=== PATIENT | male | born 1960 | race Caucasian/White ===

== ENCOUNTER 2016-10-17 09:00 | Day surgery (SDC) | payer BC ==
[~2016-10-17 09:00] MED LIST: Lactated Ringers 1,000 ML IV SCH; Propofol 200 MG/20 ML SDV ONE; Sodium Chloride 0.9% 10 ML Syringe FLUSH PRN
[2016-10-17] MEDS ORDERED: Lidocaine 2% 5 ML SDV ONE (10:04)
[2016-10-17] MEDS ORDERED: Propofol 200 MG/20 ML SDV ONE ×2 (10:04→10:25)
--- NOTE | 2016-10-17 10:07 | PCM.PN ---
- General Info Date of Service: 10/17/16 - Review of Systems Systems Review Comment:: 56 y/o male referred for EGD and colonoscopy. He has an approximately 5 month history of diarrhea which is unexplained. He has never had a previous colonoscopy. I have discussed the proposed upper and lower endoscopy with the patient. Indications and risks such as but not limited to bleeding and GI injury or reviewed. He appears to understand and agrees to proceed. He is medically stable to proceed today with no significant change in his health status since his recent history and physical which is reviewed. - Patient Data Vitals - most recent: Last Vital Signs Temp 97.7 F 10/17/16 09:11 Pulse 65 10/17/16 09:11 Resp 20 10/17/16 09:11 BP 131/77 10/17/16 09:11 Pulse Ox 97 10/17/16 09:11 Weight - most recent: 98.43 kg Med Orders - Current: Current Medications Lactated Ringer's (Ringers, Lactated) 1,000 mls @ 125 mls/hr IV ASDIRECTED CADENCE Last Admin: 10/17/16 09:47 Dose: 125 mls/hr Sodium Chloride (Saline Flush) 10 ml FLUSH ASDIRECTED PRN PRN Reason: Keep Vein Open Discontinued Medications Propofol (Diprivan 20 Ml) Confirm Administered Dose 400 mg .ROUTE .STK-MED ONE Stop: 10/17/16 08:09 - Problem List Review Problem List Initiated/Reviewed/Updated: Yes - Assessment Assessment:: Diarrhea Colon cancer screening - Plan Plan:: EGD and colonoscopy
--- NOTE | 2016-10-17 11:08 | PCM.OPNOTE ---
- General Post-Op/Procedure Note Date of Surgery/Procedure: 10/17/16 Operative Procedure(s): EGD with Bx and Colonoscopy with Polypectomy and Biopsy Findings: Moderate gastritis in the antrum Esophagitis at the GE junction Sigmoid colon polyp Scattered diverticuli of colon without acute inflammation Pre Op Diagnosis: Unexplained diarrhea Post-Op Diagnosis: Unexplained diarrhea. Gastritis. Esophagitis. Sigmoid colon polyp Anesthesia Technique: MAC Primary Surgeon: Jose Abraham Pathology: Biopsies of duodenum antrum and esophagus Sigmoid colon polyp Biopsies of left and right colon Output, Urine Amount: 0 EBL in mLs: 4 Complications: None Condition: Good Free Text/Narrative:: Intake & Output 10/16/16 10/17/16 10/17/16 22:59 06:59 14:59 Intake Total 500 Balance 500
--- NOTE | 2016-10-17 11:44 | OR ---
Date of Procedure: 10/17/2016 PREOPERATIVE DIAGNOSIS: Unexplained diarrhea. POSTOPERATIVE DIAGNOSES: 1. Unexplained diarrhea. 2. Gastritis. 3. Esophagitis. 4. Colon polyp. 5. Diverticulosis. OPERATION PERFORMED: EGD with biopsy, and colonoscopy with polypectomy and biopsy. INDICATIONS FOR SURGERY: This 56-year-old male was referred for EGD as well as his first colonoscopy. He has a several-month history of unexplained diarrhea. FINDINGS: In the patient's stomach, he has a moderate degree of inflammation with hyperemia and some friability of the antrum. There is no definite ulcer seen. The patient's duodenum appears normal. He has a moderate degree of inflammation at the GE junction, consistent with reflux esophagitis, but there is no stricturing, and the remainder of the esophagus appears normal. In the patient's colon, there is a 1.5 cm pedunculated polyp in the sigmoid colon, approximately 25 cm from the anal verge. The remainder of the colon mucosa appears normal except for some scattered diverticula noted without visible signs of acute inflammation. DESCRIPTION OF PROCEDURE: The patient was taken to the operating room. He was given intravenous sedation and his throat was topically anesthetized. The esophagus was intubated with the Olympus gastroscope and this was carefully advanced down through the esophagus, stomach, and duodenum, where examination to the fourth portion was performed. The duodenum appeared normal, but random biopsies of the duodenum were taken to evaluate for possible celiac disease in light of the patient's symptoms. The scope was withdrawn back up into the stomach where full examination, including retroflexed examination of the fundus was carried out. Biopsies were taken in the antrum in the region where inflammation was noted to rule out H. pylori. The GE junction was also examined and biopsies of this junction were taken. The esophagus was then re-examined as the scope was removed. Attention was turned to colonoscopy. Digital rectal exam was performed showing no rectal masses. The Olympus colonoscope was inserted into the rectum, retroflexed, examination of the rectal canal was performed. The scope was advanced to the sigmoid colon region where the above- described polyp was identified, it was removed with a cautery snare and retrieved. The scope was then advanced under direct visualization through the entire length of the colon until the cecum was reached. Cecal acquisition was confirmed by noting the normal internal cecal anatomy including the appendiceal orifice and ileocecal valve. The ileocecal valve could not be cannulated, but did appear normal without visible evidence of inflammation. The scope was then slowly withdrawn sequentially re-examining the colonic segments. During withdrawal of the scope, random biopsies of the right and left colon were taken because of the patient's history of diarrhea. After the colon had been examined, with no sign of any complicating process, the scope was removed and the patient was taken from the operating room in satisfactory condition. ESTIMATED BLOOD LOSS: 4 mL. COMPLICATIONS: None. PROGNOSIS: Good. FOREST Abraham MD /[id number] MTDD
[2016-10-17 15:24] VITALS: BP 121/98
== END 2016-10-17 12:09 | disposition home or self-care (01) ==
LOC: LL.SDS 09:00
PROVIDERS: ATTEND Surgery
DX: K29.50 Unspecified chronic gastritis without bleeding (principal); K31.9 Disease of stomach and duodenum, unspecified; K20.8 Other esophagitis; K29.00 Acute gastritis without bleeding; K52.832 Lymphocytic colitis; D12.5 Benign neoplasm of sigmoid colon; K57.30 Diverticulosis of large intestine without perforation or abscess without bleeding; E78.5 Hyperlipidemia, unspecified; I10 Essential (primary) hypertension; R53.83 Other fatigue; G47.30 Sleep apnea, unspecified; G47.10 Hypersomnia, unspecified; Z99.89 Dependence on other enabling machines and devices; E03.9 Hypothyroidism, unspecified; Z87.442 Personal history of urinary calculi; Z79.82 Long term (current) use of aspirin; Z79.899 Other long term (current) drug therapy; Z88.1 Allergy status to other antibiotic agents
CPT/HCPCS: 43239; 45380; 45385; J2704; J7120

== ENCOUNTER 2017-07-19 16:22 | Emergency (ER) | payer BC ==
[2017-07-19] MEDS ORDERED: Sodium Chloride 0.9% 10 ML Syringe FLUSH PRN (16:25)
[2017-07-19] MEDS ORDERED: HYDROmorphone 1 MG/ML Syringe IVPUSH PRN (16:26)
[2017-07-19] MEDS ORDERED: HYDROmorphone 1 MG/ML Syringe ONE (16:29)
[2017-07-19] MEDS ORDERED: Ondansetron 4 MG/2 ML SDV ONE (16:31)
[2017-07-19 16:45] LABS: CHLORIDE,CL 104 mmol/L (98-107); SODIUM,NA 141 mmol/L (136-145)
--- NOTE | 2017-07-19 16:51 | EDM.PDOC ---
ED HPI GENERAL MEDICAL PROBLEM - General Chief Complaint: General Stated Complaint: FALL Time Seen by Provider: 07/19/17 16:22 Source of Information: Reports: Patient, Family History Limitations: Reports: Other (Left chest pain left hip pain) - History of Present Illness INITIAL COMMENTS - FREE TEXT/NARRATIVE: Patient is a 57-year-old was brought in by private vehicle with chief complaint of severe chest pain patient states that he fell about 4 feet hitting a retainer wall with his chest complains of left posterior chest pain states about 10 out of 10 also complains of left hip pain this is tolerable at this time Onset: Sudden Duration: Minutes:, Getting Worse Location: Reports: Chest, Lower Extremity, Left Quality: Reports: Sharp Severity: Severe Improves with: Reports: None Worsens with: Reports: Movement Context: Reports: Trauma Associated Symptoms: Reports: Chest Pain - Related Data Allergies Allergy/AdvReac Type Severity Reaction Status Date / Time amoxicillin trihydrate Allergy Anaphylactic Verified 10/17/16 09:24 [From Augmentin] Shock latex Allergy Rash Verified 10/17/16 09:39 Penicillins Allergy Anaphylactic Verified 10/17/16 09:24 Shock potassium clavulanate Allergy Anaphylactic Verified 10/17/16 09:24 [From Augmentin] Shock Home Meds: Home Meds Fenofibrate,Micronized [Fenofibrate] 134 mg PO DAILY 09/29/14 [History] Levothyroxine 25 mcg PO DAILY 09/29/14 [History] Nebivolol [Bystolic] 5 mg PO DAILY 09/29/14 [History] Aspirin 325 mg PO DAILY 10/17/16 [History] Calcium Carbonate/Vitamin D3 [Calcium 600 + Vit D Tablet] 1 tab PO DAILY [History] Cider Vinegar [Apple Cider Vinegar] 1 tab PO BID 10/17/16 [History] Krill/Mylo-3/Dha/Epa/Lipids [Krill Oil 300 mg Softgel] 1 cap PO DAILY 10/17/16 [History] Melatonin 10 mg PO BEDTIME 10/17/16 [History] Multivitamin [Daily Multiple Vitamin] 1 tab PO DAILY 10/17/16 [History] Ubidecarenone [Co Q-10] 200 mg PO DAILY 10/17/16 [History] atorvaSTATin [Lipitor] 10 mg PO DAILY 10/17/16 [History] Acetaminophen/HYDROcodone [Pruden 325-5 MG] 1 tab PO Q6H 5 Days #20 tablet [Rx] Past Medical History - Past Health History Medical/Surgical History: Denies Medical/Surgical History HEENT History: Reports: Impaired Vision, Other (See Below) Other HEENT History: Has hx. of ringing in the ears Cardiovascular History: Reports: High Cholesterol, Hypertension Respiratory History: Reports: Sleep Apnea, Other (See Below) Gastrointestinal History: Reports: Other (See Below) Other Gastrointestinal History: Diarrhea for the past 3.5 months Genitourinary History: Reports: Other (See Below) Other Genitourinary History: Hx nephrolithiasis, prostatitis Musculoskeletal History: Reports: Fracture, Neck Pain, Chronic Neurological History: Reports: Other (See Below) Other Neuro History: Hypersomnolence Psychiatric History: Reports: None Endocrine/Metabolic History: Reports: Hypothyroidism Hematologic History: Reports: None Immunologic History: Reports: None. Denies: AIDS, HIV Oncologic (Cancer) History: Reports: None Dermatologic History: Reports: None - Infectious Disease History Infectious Disease History: Reports: Chicken Pox, Measles, Mumps, Rubella - Past Surgical History HEENT Surgical History: Reports: Oral Surgery Musculoskeletal Surgical History: Reports: Other (See Below) - Past Imaging History Past Imaging History: Reports: CAT Scan Social & Family History - Tobacco Use Smoking Status *Q: Never Smoker Used Tobacco, but Quit: No Second Hand Smoke Exposure: No - Caffeine Use Caffeine Use: Reports: Coffee, Tea - Alcohol Use Days Per Week of Alcohol Use: 0 (No previous DWI, etc. ) Number of Drinks Per Day: 2 (usually wine coolers once every 3 months) Total Drinks Per Week: 0 - Recreational Drug Use Recreational Drug Use: No Drug Use in Last 12 Months: No - Living Situation & Occupation Living situation: Reports: , with Family Occupation: Employed ED ROS GENERAL - Review of Systems Review Of Systems: See Below Constitutional: Reports: No Symptoms HEENT: Reports: No Symptoms Respiratory: Reports: Other (Pain with breathing) Cardiovascular: Reports: No Symptoms Endocrine: Reports: No Symptoms GI/Abdominal: Reports: No Symptoms : Reports: No Symptoms Musculoskeletal: Reports: Leg Pain Skin: Reports: No Symptoms Neurological: Reports: No Symptoms Psychiatric: Reports: No Symptoms Hematologic/Lymphatic: Reports: No Symptoms Immunologic: Reports: No Symptoms ED EXAM, GENERAL - Physical Exam Exam: See Below Exam Limited By: No Limitations General Appearance: Alert, WD/WN, Severe Distress Eye Exam: Bilateral Eye: EOMI, PERRL Ears: Normal External Exam, Normal Canal, Hearing Grossly Normal, Normal TMs Ear Exam: Bilateral Ear: Auricle Normal, Canal Normal, TM normal Nose: Normal Inspection, Normal Mucosa, No Blood Throat/Mouth: Normal Inspection, Normal Lips, Normal Teeth, Normal Gums, Normal Oropharynx, Normal Voice, No Airway Compromise Head: Atraumatic, Normocephalic Neck: Normal Inspection, Supple, Non-Tender, Full Range of Motion Respiratory/Chest: Lungs Clear, Decreased Breath Sounds Cardiovascular: Normal Peripheral Pulses, Regular Rate, Rhythm, No Edema, No Gallop, No JVD, No Murmur, No Rub GI/Abdominal: Normal Bowel Sounds, Soft, Non-Tender, No Organomegaly, No Distention, No Abnormal Bruit, No Mass (Male) Exam: No Hernia, Normal Inspection, Normal Prostate, Circumcised Rectal (Males) Exam: Deferred Back Exam: Normal Inspection, Paraspinal Tenderness Extremities: Arm Pain, Leg Pain (Patient has pain in right below knee tibia fibular area with hematoma. Left proximal femur hematoma patient has full range of motion in both legs will go ahead and do x-rays at this time patient is able to bear weight with minimal discomfort), Other (Left shoulder pain when flexing and extending arm prefers to have it at a right angle) Neurological: Alert, Oriented, CN II-XII Intact, Normal Cognition, Normal Gait, Normal Reflexes, No Motor/Sensory Deficits Psychiatric: Normal Affect, Normal Mood Course - Orders/Labs/Meds Orders: Active Orders 24 hr Category Date Time Status Chest wo Cont [CT] Stat Exams 07/19/17 16:23 Taken Femur Min 2V Lt [CR] Stat Exams 07/19/17 18:05 Ordered Tibia Fibula Rt [CR] Stat Exams 07/19/17 18:06 Ordered HYDROmorphone [Dilaudid] Med 07/19/17 16:26 Active 1 mg IVPUSH Q1H PRN Sodium Chloride 0.9% [Saline Flush] Med 07/19/17 16:25 Active 10 ml FLUSH ASDIRECTED PRN Saline Lock Insert [OM.PC] Stat Oth 07/19/17 16:25 Ordered Medication Orders Hydromorphone HCl (Dilaudid) 1 mg IVPUSH Q1H PRN PRN Reason: Pain Sodium Chloride (Saline Flush) 10 ml FLUSH ASDIRECTED PRN PRN Reason: Keep Vein Open Labs: Laboratory Tests 07/19/17 07/19/17 Range/Units 16:30 16:30 WBC 7.3 (4.0-10.2) K/uL RBC 4.88 (4.33-5.41) M/uL Hgb 15.4 (13.1-16.8) g/dL Hct 43.2 (39.0-49.0) % MCV 88.5 (84.0-98.0) fL MCH 31.6 (28.2-33.3) pg MCHC 35.6 (31.7-36.0) g/dL RDW 12.5 (11.2-14.1) % Plt Count 221 (150-350) K/uL Neut % (Auto) 51.9 (45.0-80.0) % Lymph % (Auto) 35.3 (10.0-50.0) % Gulf % (Auto) 8.3 (2.0-14.0) % Eos % (Auto) 3.9 (0.0-5.0) % Baso % (Auto) 0.6 (0.0-2.0) % Neut # (Auto) 3.77 (1.40-7.00) K/uL Lymph # (Auto) 2.56 (0.50-3.50) K/uL Gulf # (Auto) 0.60 (0.00-1.00) K/uL Eos # (Auto) 0.28 (0.00-0.50) K/uL Baso # (Auto) 0.04 (0.00-0.20) K/uL Sodium 141 (136-145) mmol/L Potassium 4.0 (3.5-5.1) mmol/L Chloride 104 (98-107) mmol/L Carbon Dioxide 28.2 (21.0-32.0) mmol/L BUN 29 H (7-18) mg/dL Creatinine 1.13 (0.51-1.17) mg/dL Est Cr Clr Drug Dosing TNP Estimated GFR (MDRD) > 60 mL/min Glucose 112 H (74-106) mg/dL Calcium 9.4 (8.5-10.1) mg/dL Meds: Medications Generic Name Dose Route Start Last Admin Trade Name Keenan PRN Reason Stop Dose Admin Hydromorphone HCl 1 mg 07/19/17 16:26 Dilaudid IVPUSH Q1H PRN Pain Sodium Chloride 10 ml 07/19/17 16:25 Saline Flush FLUSH ASDIRECTED PRN Keep Vein Open Discontinued Medications Generic Name Dose Route Start Last Admin Trade Name Keenan PRN Reason Stop Dose Admin Hydromorphone HCl Confirm 07/19/17 16:29 Dilaudid Administered 07/19/17 16:30 Dose 1 mg .ROUTE .STK-MED ONE Hydromorphone HCl 1 mg 07/19/17 16:56 Dilaudid IVPUSH 07/19/17 16:57 ONETIME ONE Ondansetron HCl Confirm 07/19/17 16:31 Zofran Administered 07/19/17 16:32 Dose 4 mg .ROUTE .STK-MED ONE Departure - Departure Time of Disposition: 18:49 Disposition: Home, Self-Care 01 Condition: Good Clinical Impression: Left rib fracture Qualifiers: Encounter type: initial encounter Rib fracture type: multiple ribs Fracture type: closed Qualified Code(s): S22.42XA - Multiple fractures of ribs, left side , initial encounter for closed fracture - Discharge Information Prescriptions: Acetaminophen/HYDROcodone [Pruden 325-5 MG] 1 tab PO Q6H 5 Days #20 tablet Forms: ED Department Discharge Care Plan Goals: Patient will be sent home with family he is to take Narco 1 tablet every 6 hours for pain follow-up with primary as needed - My Orders Last 24 Hours: My Active Orders 07/19/17 16:23 Chest wo Cont [CT] Stat 07/19/17 16:25 Sodium Chloride 0.9% [Saline Flush] 10 ml FLUSH ASDIRECTED PRN Saline Lock Insert [OM.PC] Stat 07/19/17 16:26 HYDROmorphone [Dilaudid] 1 mg IVPUSH Q1H PRN 07/19/17 18:05 Femur Min 2V Lt [CR] Stat 07/19/17 18:06 Tibia Fibula Rt [CR] Stat - Assessment/Plan Last 24 Hours: My Active Orders 07/19/17 16:23 Chest wo Cont [CT] Stat 07/19/17 16:25 Sodium Chloride 0.9% [Saline Flush] 10 ml FLUSH ASDIRECTED PRN Saline Lock Insert [OM.PC] Stat 07/19/17 16:26 HYDROmorphone [Dilaudid] 1 mg IVPUSH Q1H PRN 07/19/17 18:05 Femur Min 2V Lt [CR] Stat 07/19/17 18:06 Tibia Fibula Rt [CR] Stat
[2017-07-19] MEDS ORDERED: HYDROmorphone 1 MG/ML Syringe IVPUSH ONE (16:56)
== END 2017-07-19 19:15 | disposition home or self-care (01) ==
LOC: LL.ED 16:22
DX: S22.42XA Multiple fractures of ribs, left side, initial encounter for closed fracture (principal); E78.00 Pure hypercholesterolemia, unspecified; I10 Essential (primary) hypertension; E03.9 Hypothyroidism, unspecified; Z88.1 Allergy status to other antibiotic agents; Z91.040 Latex allergy status; Z88.0 Allergy status to penicillin; Z88.8 Allergy status to other drugs, medicaments and biological substances; Z79.82 Long term (current) use of aspirin; Z79.899 Other long term (current) drug therapy; W17.89XA Other fall from one level to another, initial encounter
CPT/HCPCS: 36415; 71250; 73590-RT; 80048; 85025; 96374; 96375; 99285; J1170; J2405

== ENCOUNTER 2017-07-26 10:50 | Emergency (ER) | payer BC ==
[2017-07-26 11:44] LABS: CHLORIDE,CL 101 mmol/L (98-107); SODIUM,NA 136 mmol/L (136-145)
--- NOTE | 2017-07-26 11:57 | EDM.PDOC ---
ED HPI GENERAL MEDICAL PROBLEM - General Chief Complaint: General Stated Complaint: right leg redness, edema Time Seen by Provider: 07/26/17 11:29 Source of Information: Reports: Patient, Family History Limitations: Reports: No Limitations - History of Present Illness INITIAL COMMENTS - FREE TEXT/NARRATIVE: Patient presents with right lower leg pain. Increased pain noticed over the last several days. Anterior jarquin is most painful part. Has abrasions in this area from recent fall that he was seen for here in this ER on Jul 19, one week ago. Today leg is reddened and is more swollen compared to left leg. Denies fevers/ chills. Did have some drainage on a bandage over the abrasions earlier. Difficult to ambulate due to discomfort. Slipped on ice and fell over 3 foot retaining wall last week. Diagnosed with minor fractures of left 7th and 8th ribs, left hip and chest contusion, in addition to the abrasions on lower anterior right leg. Pain associated with rib fractures and chest contusion have been improving. Left hip is very bruised but slowly improving. No other changes reported. Right Lower Leg Pain Score (Numeric/FACES): 3 - Related Data Allergies Allergy/AdvReac Type Severity Reaction Status Date / Time amoxicillin trihydrate Allergy Anaphylactic Verified 07/26/17 11:03 [From Augmentin] Shock latex Allergy Rash Verified 07/26/17 11:03 Penicillins Allergy Anaphylactic Verified 07/26/17 11:03 Shock potassium clavulanate Allergy Anaphylactic Verified 07/26/17 11:03 [From Augmentin] Shock Home Meds: Home Meds Levothyroxine 25 mcg PO DAILY 09/29/14 [History] Nebivolol [Bystolic] 5 mg PO DAILY 09/29/14 [History] Cider Vinegar [Apple Cider Vinegar] 1 tab PO BID 10/17/16 [History] Krill/[place]-3/Dha/Epa/Lipids [Krill Oil 300 mg Softgel] 1 cap PO DAILY 10/17/16 [History] Melatonin 10 mg PO BEDTIME 10/17/16 [History] Multivitamin [Daily Multiple Vitamin] 1 tab PO DAILY 10/17/16 [History] Ubidecarenone [Co Q-10] 200 mg PO DAILY 10/17/16 [History] Acetaminophen/HYDROcodone [[place] 325-5 MG] 1 tab PO Q4H PRN 07/26/17 [History] Cholestyramine/Sucrose [Cholestyramine Packet] 4 gm PO BID 07/26/17 [History] Non-Formulary Medication [NF Drug] 1 tab PO DAILY 07/26/17 [History] Simvastatin [Zocor] 10 mg PO BEDTIME 07/26/17 [History] Past Medical History - Past Health History Medical/Surgical History: Denies Medical/Surgical History HEENT History: Reports: Impaired Vision, Other (See Below) Other HEENT History: Has hx. of ringing in the ears Cardiovascular History: Reports: High Cholesterol, Hypertension Respiratory History: Reports: Sleep Apnea Gastrointestinal History: Reports: Other (See Below) Other Gastrointestinal History: Lymphatic Collitis Genitourinary History: Reports: Renal Calculus, Other (See Below) Other Genitourinary History: Hx nephrolithiasis, prostatitis Musculoskeletal History: Reports: Fracture, Neck Pain, Chronic Neurological History: Reports: Other (See Below) Other Neuro History: Hypersomnolence Psychiatric History: Reports: None Endocrine/Metabolic History: Reports: Hypothyroidism Hematologic History: Reports: None Immunologic History: Reports: None Oncologic (Cancer) History: Reports: None Dermatologic History: Reports: None - Infectious Disease History Infectious Disease History: Reports: Chicken Pox, Measles, Mumps, Rubella - Past Surgical History Head Surgeries/Procedures: Reports: None HEENT Surgical History: Reports: Oral Surgery - Past Imaging History Past Imaging History: Reports: CAT Scan Social & Family History - Family History Neurological: Reports: Alzheimers Disease, Other (See Below) Other Neurological Family History: mother Alzheimers by her 50s Endocrine/Metabolic: Reports: Hypothyroidism Oncologic: Reports: Colon, Other (See Below) Other Oncologic Family History: colon cancer father - Tobacco Use Smoking Status *Q: Never Smoker Used Tobacco, but Quit: No Second Hand Smoke Exposure: No - Caffeine Use Caffeine Use: Reports: Coffee, Tea - Alcohol Use Days Per Week of Alcohol Use: 0 (No previous DWI, etc. ) Number of Drinks Per Day: 2 (usually wine coolers once every 3 months) Total Drinks Per Week: 0 Alcohol Use Comment: Very rarely uses alcohol. - Recreational Drug Use Recreational Drug Use: No Drug Use in Last 12 Months: No - Living Situation & Occupation Living situation: Reports: , with Family Occupation: Employed ED ROS GENERAL - Review of Systems Review Of Systems: See Below Constitutional: Reports: Malaise, Fatigue, Decreased Appetite. Denies: Fever, Chills, Weakness, Night Sweats, Diaphoresis, Weight Gain HEENT: Reports: No Symptoms Respiratory: Reports: No Symptoms. Denies: Shortness of Breath Cardiovascular: Reports: Other (discomfort left lateral chest from contusion and rib fractures. Improving). Denies: Dyspnea on Exertion GI/Abdominal: Reports: No Symptoms (No acute changes) : Reports: No Symptoms Musculoskeletal: Reports: Leg Pain. Denies: Foot Pain Skin: Reports: Erythema, Wound (see HPI) Neurological: Reports: No Symptoms. Denies: Headache, Numbness, Paresthesia, Syncope, Tremors, Change in Speech Psychiatric: Reports: No Symptoms Hematologic/Lymphatic: Reports: No Symptoms Free Text/Narrative/Comment: Patient is taking Hydrocodone. Says that he feels "funny" from the medication as he has been taking it every 4-6 hours. ED EXAM, GENERAL - Physical Exam Exam: See Below Exam Limited By: No Limitations General Appearance: Alert, WD/WN, Mild Distress Eye Exam: Bilateral Eye: EOMI, PERRL Ears: Normal External Exam, Normal Canal Nose: Normal Inspection Throat/Mouth: Normal Inspection, Normal Lips, Normal Teeth, Normal Gums, Normal Oropharynx, Normal Voice, No Airway Compromise Head: Atraumatic, Normocephalic Neck: Normal Inspection, Supple, Non-Tender, Full Range of Motion. No: Lymphadenopathy (L), Lymphadenopathy (R) Respiratory/Chest: No Respiratory Distress, Lungs Clear, Normal Breath Sounds, No Accessory Muscle Use, Other (left lateral chest tenderness noted. No crepitus. ) Cardiovascular: Normal Peripheral Pulses, Regular Rate, Rhythm, No Murmur Peripheral Pulses: 2+: Radial (L), Radial (R), Dorsalis Pedis (L), Dorsalis Pedis (R) GI/Abdominal: Normal Bowel Sounds, Soft, Non-Tender, No Distention (Male) Exam: Deferred Rectal (Males) Exam: Deferred Back Exam: No: CVA Tenderness (L), CVA Tenderness (R) Extremities: Pedal Edema (mild, on right), Oswaldo's Sign (mild, on right), Leg Pain (right), Increased Warmth, Redness (right lower leg/anterior jarquin). No: Joint Swelling Neurological: Alert, Oriented, CN II-XII Intact, No Motor/Sensory Deficits Psychiatric: Normal Affect, Normal Mood Skin Exam: Warm, Dry, Intact, Ecchymosis (older bruising from fall noted left hip/side), Other (See above for right lower leg) Course - Vital Signs Last Recorded V/S: Last Vital Signs Temp 37.1 C 07/26/17 11:20 Pulse 65 07/26/17 13:43 Resp 16 07/26/17 13:43 BP 117/69 07/26/17 13:43 Pulse Ox 93 L 07/26/17 13:43 - Orders/Labs/Meds Orders: Active Orders 24 hr Category Date Time Status Peripheral IV Care [RC] . DIRECTED Care 07/26/17 11:23 Active CULTURE WOUND [RM] Stat Lab 07/26/17 11:23 Ordered Sodium Chloride 0.9% [Saline Flush] Med 07/26/17 11:23 Active 10 ml FLUSH ASDIRECTED PRN Peripheral IV Insertion Adult [OM.PC] Routine Oth 07/26/17 11:23 Ordered Medication Orders Sodium Chloride (Saline Flush) 10 ml FLUSH ASDIRECTED PRN PRN Reason: Keep Vein Open Last Admin: 07/26/17 12:55 Dose: 10 ml Admin: 07/26/17 12:20 Dose: 10 ml Labs: Laboratory Tests 07/26/17 07/26/17 07/26/17 Range/Units 11:15 11:15 11:15 WBC 6.7 (4.0-10.2) K/uL RBC 4.70 (4.33-5.41) M/uL Hgb 14.7 (13.1-16.8) g/dL Hct 42.1 (39.0-49.0) % MCV 89.6 (84.0-98.0) fL MCH 31.3 (28.2-33.3) pg MCHC 34.9 (31.7-36.0) g/dL RDW 12.5 (11.2-14.1) % Plt Count 191 (150-350) K/uL Neut % (Auto) 62.4 (45.0-80.0) % Lymph % (Auto) 20.4 (10.0-50.0) % [place] % (Auto) 11.7 (2.0-14.0) % Eos % (Auto) 5.1 H (0.0-5.0) % Baso % (Auto) 0.4 (0.0-2.0) % Neut # (Auto) 4.17 (1.40-7.00) K/uL Lymph # (Auto) 1.36 (0.50-3.50) K/uL [place] # (Auto) 0.78 (0.00-1.00) K/uL Eos # (Auto) 0.34 (0.00-0.50) K/uL Baso # (Auto) 0.03 (0.00-0.20) K/uL D-Dimer, Quantitative 767 H (0-400) ng/mL Sodium 136 (136-145) mmol/L Potassium 4.1 (3.5-5.1) mmol/L Chloride 101 (98-107) mmol/L Carbon Dioxide 27.6 (21.0-32.0) mmol/L BUN 18 (7-18) mg/dL Creatinine 1.01 (0.51-1.17) mg/dL Est Cr Clr Drug Dosing 86.44 mL/min Estimated GFR (MDRD) > 60 mL/min Glucose 103 (74-106) mg/dL Calcium 9.2 (8.5-10.1) mg/dL Total Bilirubin 0.7 (0.2-1.0) mg/dL AST 28 (15-37) U/L ALT 48 (12-78) U/L Alkaline Phosphatase 59 (46-116) IU/L Total Protein 7.5 (6.4-8.2) g/dL Albumin 3.8 (3.4-5.0) g/dL Meds: Medications Generic Name Dose Route Start Last Admin Trade Name Freq PRN Reason Stop Dose Admin Sodium Chloride 10 ml 07/26/17 11:23 07/26/17 12:55 Saline Flush FLUSH 10 ml ASDIRECTED PRN Administration Keep Vein Open Discontinued Medications Generic Name Dose Route Start Last Admin Trade Name Freq PRN Reason Stop Dose Admin Diphenhydramine HCl 50 mg 07/26/17 12:42 07/26/17 12:52 Benadryl IVPUSH 07/26/17 12:43 50 mg ONETIME ONE Administration Clindamycin Phosphate 600 mg/ 104 mls @ 200 mls/hr 07/26/17 12:07 07/26/17 12 :55 Sodium Chloride IV 07/26/17 12:38 200 mls/hr ONETIME ONE Administration Morphine Sulfate 5 mg 07/26/17 12:01 07/26/17 12:20 Morphine IVPUSH 07/26/17 12:02 5 mg ONETIME ONE Administration Neomycin/Polymyxin/Bacitracin 1 each 07/26/17 12:02 07/26/17 12:19 Triple Antibiotic Oint TOP 07/26/17 12:03 1 each ONETIME ONE Administration Ondansetron HCl 4 mg 07/26/17 12:02 07/26/17 12:19 Zofran IVPUSH 07/26/17 12:03 4 mg ONETIME ONE Administration - Re-Assessments/Exams Free Text/Narrative Re-Assessment/Exam: 07/26/17 12:18 Normal CBC/WBC and Chem DDimer elevated to 767 Afebrile. VSS. Given recent mobility limitations s/p fall, elevated DDimer, and right lower leg pain (including calf area) it was felt prudent to rule out DVT by US study. As it is not available over the weekend for our facility, arrangements were made for the patient to go to [facility] and present to the ER to be seen by . will take over care and arrange for US study. Patient will require inpatient treatment for the infection as well as pain management. [facility] does have room for him if he wishes admission to their facility. However he was made aware that if he desires he can return to our facility for admission and treatment after US is performed and results available. Patient and his said that they will see how he feels once he is up at [facility] for the US and they will then decide. IV Clindamycin as well as Zofran and MS given in ER prior to transfer. Flag in system generated when Clinda ordered due to patient's allergy to latex. Per Pharmacy there can be latex contamination in some Clindamycin introduced during manufacturing process. After discussing what latex allergy is with patient, he mentioned that it was a band aid issue where he gets red under band aids. He showed us an area on his arm where he used a latex-free band aid and he still got red. Suspect patient is sensitive to adhesive and not latex after conversation. No history of anaphylaxis with "latex/bandaids/adhesive". Clindamycin given without any problems/reaction noted. Departure - Departure Time of Disposition: 13:00 Disposition: DC/Tfer to Acute Hospital 02 Condition: Fair Clinical Impression: Cellulitis of right leg, D-dimer, elevated - Discharge Information Referrals: Tanya Castaneda MD [Primary Care Provider] - Forms: ED Department Discharge Additional Instructions: Drive directly to [facility] in [place] and present to the ER. is expecting you. He will see you and arrange for US study of lower leg. Once it has been determined if there is/is not a blood clot involved then it is anticipated that you would benefit from inpatient treatment for cellulitis and pain management. You can decide if you wish to stay at [facility] for this. You can also return back to [place] and be admitted for treatment here. - My Orders Last 24 Hours: My Active Orders 07/26/17 11:23 Peripheral IV Care [RC] . DIRECTED CULTURE WOUND [RM] Stat Sodium Chloride 0.9% [Saline Flush] 10 ml FLUSH ASDIRECTED PRN Peripheral IV Insertion Adult [OM.PC] Routine - Assessment/Plan Last 24 Hours: My Active Orders 07/26/17 11:23 Peripheral IV Care [RC] . DIRECTED CULTURE WOUND [RM] Stat Sodium Chloride 0.9% [Saline Flush] 10 ml FLUSH ASDIRECTED PRN Peripheral IV Insertion Adult [OM.PC] Routine
[2017-07-26] MEDS ORDERED: Morphine 10 MG/ML Syringe IVPUSH ONE (12:01)
[2017-07-26] MEDS ORDERED: Ondansetron 4 MG/2 ML SDV IVPUSH ONE (12:02)
[2017-07-26] MEDS ORDERED: Bacitracin/Neomycin/Polymyxin B Oint 0.9 GM U/D Packet TOP ONE (12:02)
[2017-07-26] MEDS ORDERED: Clindamycin Phosphate 600 MG in Sodium Chloride 0.9% 100 ML IV ONE (12:07)
[2017-07-26] MEDS: Sodium Chloride 0.9% 10 ML Syringe FLUSH PRN ×2 (12:20→12:55)
[2017-07-26] MEDS ORDERED: diphenhydrAMINE 50 MG/ML SDV IVPUSH ONE (12:42)
[2017-07-26 13:44] VITALS: BP 117/69
== END 2017-07-26 13:55 ==
LOC: LL.ED 10:50
DX: L03.115 Cellulitis of right lower limb (principal); R79.1 Abnormal coagulation profile; I10 Essential (primary) hypertension; E78.00 Pure hypercholesterolemia, unspecified; E03.9 Hypothyroidism, unspecified; Z88.0 Allergy status to penicillin; Z88.1 Allergy status to other antibiotic agents; Z91.040 Latex allergy status; Z79.899 Other long term (current) drug therapy
CPT/HCPCS: 36415; 80053; 85025; 85379; 96365; 96375; 99284; J1200; J2270; J2405; J7050; S0077

== ENCOUNTER 2017-07-26 20:48 | Inpatient (IN) | payer BC ==
--- NOTE | 2017-07-26 21:19 | PCM.HP ---
H&P History of Present Illness - General Date of Service: 07/26/17 Admit Problem/Dx: Cellulitis right leg Source of Information: Patient History Limitations: Reports: No Limitations - History of Present Illness Initial Comments - Free Text/Narative: Patient seen in ER earlier for new onset right leg swelling and redness. Diagnosed with cellulitis and given IV antibiotics. However prior to admission needed US to formally rule out DVT involvement due to calf pain and elevated DDimer. Patient sent to [facility] for US study. This was negative for DVT. He now returns to continue treatment at our facility. Please refer to ER note/H&P and use for admission H&P. - Related Data Allergies/Adverse Reactions: Allergies Allergy/AdvReac Type Severity Reaction Status Date / Time amoxicillin trihydrate Allergy Anaphylactic Verified 07/26/17 11:03 [From Augmentin] Shock latex Allergy Rash Verified 07/26/17 11:03 Penicillins Allergy Anaphylactic Verified 07/26/17 11:03 Shock potassium clavulanate Allergy Anaphylactic Verified 07/26/17 11:03 [From Augmentin] Shock Home Medications: Home Meds Levothyroxine 25 mcg PO DAILY 09/29/14 [History] Nebivolol [Bystolic] 5 mg PO DAILY 09/29/14 [History] Cider Vinegar [Apple Cider Vinegar] 1 tab PO BID 10/17/16 [History] Krill/[place]-3/Dha/Epa/Lipids [Krill Oil 300 mg Softgel] 1 cap PO DAILY 10/17/16 [History] Melatonin 10 mg PO BEDTIME 10/17/16 [History] Multivitamin [Daily Multiple Vitamin] 1 tab PO DAILY 10/17/16 [History] Ubidecarenone [Co Q-10] 200 mg PO DAILY 10/17/16 [History] Acetaminophen/HYDROcodone [[place] 325-5 MG] 1 tab PO Q4H PRN 07/26/17 [History] Cholestyramine/Sucrose [Cholestyramine Packet] 4 gm PO BID 07/26/17 [History] Non-Formulary Medication [NF Drug] 1 tab PO DAILY 07/26/17 [History] Simvastatin [Zocor] 10 mg PO BEDTIME 07/26/17 [History] Past Medical History - Past Health History Medical/Surgical History: Denies Medical/Surgical History HEENT History: Reports: Impaired Vision, Other (See Below) Other HEENT History: Has hx. of ringing in the ears Cardiovascular History: Reports: High Cholesterol, Hypertension Respiratory History: Reports: Sleep Apnea Gastrointestinal History: Reports: Other (See Below) Other Gastrointestinal History: Lymphatic Collitis Genitourinary History: Reports: Renal Calculus, Other (See Below) Other Genitourinary History: Hx nephrolithiasis, prostatitis Musculoskeletal History: Reports: Fracture, Neck Pain, Chronic Neurological History: Reports: Other (See Below) Other Neuro History: Hypersomnolence Psychiatric History: Reports: None Endocrine/Metabolic History: Reports: Hypothyroidism Hematologic History: Reports: None Immunologic History: Reports: None Oncologic (Cancer) History: Reports: None Dermatologic History: Reports: None - Infectious Disease History Infectious Disease History: Reports: Chicken Pox, Measles, Mumps, Rubella - Past Surgical History Head Surgeries/Procedures: Reports: None HEENT Surgical History: Reports: Oral Surgery - Past Imaging History Past Imaging History: Reports: CAT Scan Social & Family History - Family History Neurological: Reports: Alzheimers Disease, Other (See Below) Other Neurological Family History: mother Alzheimers by her 50s Endocrine/Metabolic: Reports: Hypothyroidism Oncologic: Reports: Colon, Other (See Below) Other Oncologic Family History: colon cancer father - Tobacco Use Smoking Status *Q: Never Smoker Used Tobacco, but Quit: No Second Hand Smoke Exposure: No - Caffeine Use Caffeine Use: Reports: Coffee, Tea Caffeine Use Comment: occassional coffee and tea - Alcohol Use Days Per Week of Alcohol Use: 0 (No previous DWI, etc. ) Number of Drinks Per Day: 2 (usually wine coolers once every 3 months) Total Drinks Per Week: 0 - Recreational Drug Use Recreational Drug Use: No Drug Use in Last 12 Months: No - Living Situation & Occupation Living situation: Reports: , with Family Occupation: Employed H&P Review of Systems - Review of Systems: Review Of Systems: See Below Free Text/Narrative: See ER note Exam - Exam Exam: See Below (See ER note for H&P) *Q Meaningful Use (ADM) - VTE *Q VTE Criteria *Q: - Stroke *Q Stroke Criteria *Q: - AMI *Q AMI Criteria *Q: - Problem List (1) Cellulitis of right leg SNOMED Code(s): 352982068 ICD Code: L03.115 - CELLULITIS OF RIGHT LOWER LIMB Status: Acute Priority : High Current Visit: No Onset Date: ~07/25/17 Problem Details: Recent fall with subsequent leg abrasion one week ago. Developed increased pain, redness and swelling over last 48 hours around abrasion and lower leg. No active drainage. Unable to obtain culture in ER. (2) Hyperlipidemia SNOMED Code(s): 86073842 ICD Code: E78.5 - HYPERLIPIDEMIA, UNSPECIFIED Status: Chronic Priority: Low Current Visit: No Problem Details: Stable per history from patient and (3) Hypertension SNOMED Code(s): 48347040 ICD Code: I10 - ESSENTIAL (PRIMARY) HYPERTENSION Status: Chronic Priority : Low Current Visit: No Problem Details: Stable per history (4) Hypothyroid SNOMED Code(s): 75886152 ICD Code: E03.9 - HYPOTHYROIDISM, UNSPECIFIED Status: Chronic Priority: Low Current Visit: No Qualifiers: Hypothyroidism type: unspecified Qualified Code(s): E03.9 - Hypothyroidism , unspecified Problem List Initiated/Reviewed/Updated: Yes Assessment/Plan Comment:: Cellulitis right lower leg. Recent fall one week ago with subsequent lower right leg abrasions as well as left rib fractures and left sided contusions. Initial workup in ER. No DVT per [facility] ultrasound study in [place]. Will continue Clindamycin IV as well as focus on pain management. Anticipate 3 day stay for antibiotic therapy, improvement of infection and pain, and transitioning to oral medication prior to discharge home.
[2017-07-26] MEDS ORDERED: Bisacodyl 5 MG Tab PO PRN (21:25)
[2017-07-26] MEDS ORDERED: Acetaminophen 325 MG Tab PO PRN (21:25)
[2017-07-26] MEDS ORDERED: Ondansetron 4 MG/2 ML SDV IVPUSH PRN (21:25)
[2017-07-26] MEDS ORDERED: Morphine 10 MG/ML Syringe IVPUSH ONE (21:35)
[2017-07-26] MEDS: Enoxaparin 40 MG/0.4 ML Syringe SUBCUT SCH (22:18)
[2017-07-26] MEDS: Clindamycin Phosphate 600 MG in Sodium Chloride 0.9% 100 ML IV SCH (22:19)
[2017-07-27] MEDS: Sodium Chloride 0.9% 10 ML Syringe FLUSH PRN ×5 (02:44→21:58)
[2017-07-27] MEDS ORDERED: Morphine 10 MG/ML Syringe IVPUSH ONE (03:00)
[2017-07-27] MEDS: Ketorolac 30 MG/ML SDV IVPUSH PRN ×2 (05:19→19:03)
[2017-07-27] MEDS: Clindamycin Phosphate 600 MG in Sodium Chloride 0.9% 100 ML IV SCH ×3 (05:19→21:57)
[2017-07-27] MEDS: Enoxaparin 40 MG/0.4 ML Syringe SUBCUT SCH (07:47)
[2017-07-27] MEDS: Levothyroxine 25 MCG Tab PO SCH (07:47)
--- NOTE | 2017-07-27 12:44 | PCM.PN ---
- General Info Date of Service: 07/27/17 Admission Dx/Problem (Free Text): Cellulitis right leg Subjective Update: Pain still present but improves with pain medication. No worsening overall. Feels more rested today. No fevers/chills. Leg is sometimes itchy today. Functional Status: Reports: Pain Controlled Pain Score: 5 - Review of Systems General: Reports: Fatigue, Appetite (still decreased). Denies: Fever, Night Sweats HEENT: Reports: No Symptoms Pulmonary: Reports: No Symptoms Cardiovascular: Reports: No Symptoms Gastrointestinal: Reports: No Symptoms Genitourinary: Reports: No Symptoms Musculoskeletal: Reports: Leg Pain Skin: Reports: Other (cellulitis of leg) Neurological: Reports: No Symptoms Psychiatric: Reports: No Symptoms - Patient Data Vitals - Most Recent: Last Vital Signs Temp 36.7 C 07/27/17 07:48 Pulse 69 07/27/17 07:48 Resp 20 07/27/17 07:48 BP 115/75 07/27/17 07:48 Pulse Ox 93 L 07/27/17 07:48 Weight - Most Recent: 102.512 kg I&O - Last 24 Hours: Intake & Output 07/26/17 07/27/17 07/27/17 22:59 06:59 14:59 Intake Total 250 300 Output Total 500 Balance -250 300 Med Orders - Current: Current Medications Acetaminophen (Tylenol) 650 mg PO Q4H PRN PRN Reason: Pain (Mild 1-3)/fever Bisacodyl (Dulcolax) 5 mg PO DAILY PRN PRN Reason: Constipation Coenzyme Q10 (Coenzyme Q10) 200 mg PO DAILY [facility] Last Admin: 07/27/17 07:47 Dose: 200 mg Enoxaparin Sodium (Lovenox) 40 mg SUBCUT DAILY [facility] Last Admin: 07/27/17 07:47 Dose: 40 mg Fenofibrate (Fenofibrate) 134 mg PO BEDTIME [facility] Clindamycin Phosphate 600 mg/ (Sodium Chloride) 104 mls @ 200 mls/hr IV Q8H [facility] Last Admin: 07/27/17 05:19 Dose: 200 mls/hr Ketorolac Tromethamine (Toradol) 30 mg IVPUSH Q6H PRN PRN Reason: Pain (moderate 4-6) Last Admin: 07/27/17 05:19 Dose: 30 mg Levothyroxine Sodium (Levothyroxine) 25 mcg PO DAILY [facility] Last Admin: 07/27/17 07:47 Dose: 25 mcg Nebivolol (Bystolic) 5 mg PO DAILY [facility] Last Admin: 07/27/17 07:46 Dose: 5 mg Ondansetron HCl (Zofran) 4 mg IVPUSH Q6H PRN PRN Reason: Nausea/Vomiting Oxycodone HCl (Oxycodone) 5 mg PO Q4H PRN PRN Reason: Pain (moderate 4-6) Sodium Chloride (Saline Flush) 10 ml FLUSH ASDIRECTED PRN PRN Reason: Keep Vein Open Last Admin: 07/27/17 05:18 Dose: 10 ml Discontinued Medications Morphine Sulfate (Morphine) 5 mg IVPUSH ONETIME ONE Stop: 07/26/17 21:36 Last Admin: 07/26/17 22:18 Dose: 5 mg Morphine Sulfate (Morphine) 5 mg IVPUSH ONETIME ONE Stop: 07/27/17 03:01 Last Admin: 07/27/17 02:43 Dose: 5 mg Simvastatin (Zocor) 10 mg PO BEDTIME [facility] - Exam Quality Assessment: DVT Prophylaxis General: Alert, Oriented, Cooperative, No Acute Distress HEENT: Pupils Equal, Pupils Reactive, EOMI, Mucous Membr. Moist/[place] Neck: Supple Lungs: Clear to Auscultation, Normal Respiratory Effort Cardiovascular: Regular Rate, Regular Rhythm GI/Abdominal Exam: Normal Bowel Sounds, Soft, Non-Tender, No Distention Back Exam: Normal Inspection Extremities: Pedal Edema (stable), Increased Warmth (right leg), Redness, Other (redness appears to be improving today. ) Peripheral Pulses: 2+: Dorsalis Pedis (R) Skin: Warm, Dry, Other (scabbed over abrasions anterior right lower leg, no drainage) Wound/Incisions: Healing Well Neurological: No New Focal Deficit Psy/Mental Status: Alert, Normal Affect, Normal Mood - Problem List & Annotations (1) Cellulitis of right leg SNOMED Code(s): 464330499 Code(s): L03.115 - CELLULITIS OF RIGHT LOWER LIMB Status: Acute Priority : High Current Visit: No Onset Date: ~07/25/17 Annotation/Comment:: Appears to be improving (2) Hyperlipidemia SNOMED Code(s): 86013793 Code(s): E78.5 - HYPERLIPIDEMIA, UNSPECIFIED Status: Chronic Priority: Low Current Visit: No Annotation/Comment:: Stable per history from patient and (3) Hypertension SNOMED Code(s): 85907803 Code(s): I10 - ESSENTIAL (PRIMARY) HYPERTENSION Status: Chronic Priority : Low Current Visit: No Annotation/Comment:: Stable per history (4) Hypothyroid SNOMED Code(s): 47045736 Code(s): E03.9 - HYPOTHYROIDISM, UNSPECIFIED Status: Chronic Priority: Low Current Visit: No Qualifiers: Hypothyroidism type: unspecified Qualified Code(s): E03.9 - Hypothyroidism , unspecified - Problem List Review Problem List Initiated/Reviewed/Updated: Yes - My Orders Last 24 Hours: My Active Orders 07/26/17 21:25 Up ad Mariluz [RC] ASDIRECTED OT Evaluation and Treatment [CONS] Routine PT Evaluation and Treatment [CONS] Routine Acetaminophen [Tylenol] 650 mg PO Q4H PRN Bisacodyl [Dulcolax] 5 mg PO DAILY PRN Ketorolac [Toradol] 30 mg IVPUSH Q6H PRN Ondansetron [Zofran] 4 mg IVPUSH Q6H PRN oxyCODONE 5 mg PO Q4H PRN Resuscitation Status Routine 07/26/17 21:26 Patient Status [ADT] Routine Oxygen Therapy [RC] 2300 VTE/DVT Education [RC] PER UNIT ROUTINE Vital Signs [RC] Q8HR 07/26/17 21:27 Pulse Oximetry [RC] PRN 07/26/17 21:29 Antiembolic Devices [RC] 08,20 Antiembolic Hose [OM.PC] Per Unit Routine 07/26/17 21:30 Enoxaparin [Lovenox] 40 mg SUBCUT DAILY 07/26/17 22:00 Clindamycin Phosphate [Cleocin] 600 mg Sodium Chloride 0.9% [Normal Saline] 100 ml IV Q8H 07/26/17 22:20 Sodium Chloride 0.9% [Saline Flush] 10 ml FLUSH ASDIRECTED PRN 07/27/17 08:00 Levothyroxine 25 mcg PO DAILY Nebivolol [Bystolic] 5 mg PO DAILY Ubidecarenone [Coenzyme Q10] 200 mg PO DAILY 07/27/17 20:00 Fenofibrate,Micronized [Fenofibrate] 134 mg PO BEDTIME 07/27/17 Breakfast Heart Healthy Diet [DIET] - Assessment Assessment:: Cellulitis right leg, appears to be improving on current regimen - Plan Plan:: Cellulitis right lower leg. Recent fall one week ago with subsequent lower right leg abrasions as well as left rib fractures and left sided contusions. Initial workup in ER. No DVT per [facility] ultrasound study in [place]. Will continue Clindamycin IV as well as focus on pain management. Anticipate additional 2 day stay for antibiotic therapy, improvement of infection and pain , and transitioning to oral medication prior to discharge home.
[2017-07-27] MEDS: Fenofibrate,Micronized 134 MG Cap PO SCH (19:06)
[2017-07-27] MEDS ORDERED: Simvastatin 10 MG Tab PO SCH (20:00)
[2017-07-28] MEDS: Ketorolac 30 MG/ML SDV IVPUSH PRN ×2 (01:58→12:31)
[2017-07-28] MEDS: Sodium Chloride 0.9% 10 ML Syringe FLUSH PRN ×7 (01:59→21:35)
[2017-07-28] MEDS: Clindamycin Phosphate 600 MG in Sodium Chloride 0.9% 100 ML IV SCH ×3 (05:37→21:35)
[2017-07-28] MEDS: oxyCODONE 5 MG Tab PO PRN (06:23)
[2017-07-28] MEDS: Levothyroxine 25 MCG Tab PO SCH (07:33)
[2017-07-28] MEDS: Enoxaparin 40 MG/0.4 ML Syringe SUBCUT SCH (07:34)
[2017-07-28 11:23] LABS: CHLORIDE,CL 103 mmol/L (98-107); SODIUM,NA 138 mmol/L (136-145)
--- NOTE | 2017-07-28 14:49 | PCM.PN ---
- General Info Date of Service: 07/28/17 Admission Dx/Problem (Free Text): Cellulitis right leg Subjective Update: Pain still present but improves with pain medication. No worsening overall. Feels more rested today. No fevers/chills. Leg is sometimes itchy today. Functional Status: Reports: Tolerating Diet, Other (pain right leg) - Review of Systems General: Reports: No Symptoms HEENT: Reports: No Symptoms Pulmonary: Reports: No Symptoms Cardiovascular: Reports: No Symptoms Gastrointestinal: Reports: No Symptoms Genitourinary: Reports: No Symptoms Musculoskeletal: Reports: Leg Pain (right) Skin: Reports: Other (right leg abrasions jarquin area, reddness RLE, edema RLE has decreased) Neurological: Reports: No Symptoms Psychiatric: Reports: No Symptoms - Patient Data Vitals - Most Recent: Last Vital Signs Temp 98.4 F 07/28/17 07:36 Pulse 72 07/28/17 07:36 Resp 20 07/28/17 07:36 BP 128/95 H 07/28/17 07:36 Pulse Ox 95 07/28/17 07:36 Weight - Most Recent: 226 lb 0.004 oz I&O - Last 24 Hours: Intake & Output 07/27/17 07/28/17 07/28/17 22:59 06:59 14:59 Intake Total 320 500 Output Total 1300 1000 Balance 320 -800 -1000 Lab Results Last 24 Hours: Laboratory Results - last 24 hr 07/28/17 07/28/17 Range/Units 11:00 11:00 WBC 6.4 (4.0-10.2) K/uL RBC 4.52 (4.33-5.41) M/uL Hgb 14.3 (13.1-16.8) g/dL Hct 40.6 (39.0-49.0) % MCV 89.8 (84.0-98.0) fL MCH 31.6 (28.2-33.3) pg MCHC 35.2 (31.7-36.0) g/dL RDW 12.2 (11.2-14.1) % Plt Count 192 (150-350) K/uL Neut % (Auto) 63.4 (45.0-80.0) % Lymph % (Auto) 21.1 (10.0-50.0) % [place] % (Auto) 9.1 (2.0-14.0) % Eos % (Auto) 5.6 H (0.0-5.0) % Baso % (Auto) 0.8 (0.0-2.0) % Neut # (Auto) 4.05 (1.40-7.00) K/uL Lymph # (Auto) 1.35 (0.50-3.50) K/uL [place] # (Auto) 0.58 (0.00-1.00) K/uL Eos # (Auto) 0.36 (0.00-0.50) K/uL Baso # (Auto) 0.05 (0.00-0.20) K/uL Sodium 138 (136-145) mmol/L Potassium 4.0 (3.5-5.1) mmol/L Chloride 103 (98-107) mmol/L Carbon Dioxide 29.3 (21.0-32.0) mmol/L BUN 33 H (7-18) mg/dL Creatinine 1.23 H (0.51-1.17) mg/dL Est Cr Clr Drug Dosing 71.07 mL/min Estimated GFR (MDRD) > 60 mL/min Glucose 111 H (74-106) mg/dL Calcium 8.9 (8.5-10.1) mg/dL Total Bilirubin 0.6 (0.2-1.0) mg/dL AST 25 (15-37) U/L ALT 41 (12-78) U/L Alkaline Phosphatase 64 (46-116) IU/L C-Reactive Protein 0.9 (<=0.9) mg/dL Total Protein 7.1 (6.4-8.2) g/dL Albumin 3.4 (3.4-5.0) g/dL Med Orders - Current: Current Medications Acetaminophen (Tylenol) 650 mg PO Q4H PRN PRN Reason: Pain (Mild 1-3)/fever Bisacodyl (Dulcolax) 5 mg PO DAILY PRN PRN Reason: Constipation Coenzyme Q10 (Coenzyme Q10) 200 mg PO DAILY [facility] Last Admin: 07/28/17 07:33 Dose: 200 mg Fenofibrate (Fenofibrate) 134 mg PO BEDTIME [facility] Last Admin: 07/27/17 19:06 Dose: 134 mg Clindamycin Phosphate 600 mg/ (Sodium Chloride) 104 mls @ 200 mls/hr IV Q8H [facility] Last Admin: 07/28/17 05:37 Dose: 200 mls/hr Ketorolac Tromethamine (Toradol) 30 mg IVPUSH Q6HR [facility] Stop: 08/02/17 18:01 Levothyroxine Sodium (Levothyroxine) 25 mcg PO DAILY [facility] Last Admin: 07/28/17 07:33 Dose: 25 mcg Morphine Sulfate (Morphine) 5 mg IVPUSH Q2H PRN PRN Reason: Pain (severe 7-10) Nebivolol (Bystolic) 5 mg PO DAILY [facility] Last Admin: 07/28/17 07:30 Dose: 5 mg Ondansetron HCl (Zofran) 4 mg IVPUSH Q6H PRN PRN Reason: Nausea/Vomiting Oxycodone HCl (Oxycodone) 5 mg PO Q4H PRN PRN Reason: Pain (moderate 4-6) Last Admin: 07/28/17 06:23 Dose: 5 mg Sodium Chloride (Saline Flush) 10 ml FLUSH ASDIRECTED PRN PRN Reason: Keep Vein Open Last Admin: 07/28/17 12:32 Dose: 10 ml Sodium Chloride (Saline Flush) 10 ml FLUSH Q12HR [facility] Discontinued Medications Enoxaparin Sodium (Lovenox) 40 mg SUBCUT DAILY [facility] Last Admin: 07/28/17 07:34 Dose: 40 mg Ketorolac Tromethamine (Toradol) 30 mg IVPUSH Q6H PRN PRN Reason: Pain (moderate 4-6) Last Admin: 07/28/17 12:31 Dose: 30 mg Morphine Sulfate (Morphine) 5 mg IVPUSH ONETIME ONE Stop: 07/26/17 21:36 Last Admin: 07/26/17 22:18 Dose: 5 mg Morphine Sulfate (Morphine) 5 mg IVPUSH ONETIME ONE Stop: 07/27/17 03:01 Last Admin: 07/27/17 02:43 Dose: 5 mg Simvastatin (Zocor) 10 mg PO BEDTIME [facility] - Exam Quality Assessment: DVT Prophylaxis (but stopped due to interaction between lovenox and toradol) General: Alert, Cooperative HEENT: Pupils Equal, Pupils Reactive, EOMI, Mucous Membr. Moist/[place] Neck: Trachea Midline, No JVD Lungs: Clear to Auscultation, Normal Respiratory Effort, Decreased Breath Sounds (left mid lung) Cardiovascular: Regular Rate, Regular Rhythm GI/Abdominal Exam: Soft, Non-Tender, No Distention (Male) Exam: Deferred Back Exam: Normal Inspection Extremities: Pedal Edema (right, with reddness, abrasions jarquin and swelling) Skin: Warm, Dry, Intact Wound/Incisions: No Drainage, Erythema Improving (RLE) Neurological: No New Focal Deficit Psy/Mental Status: Alert, Normal Affect, Normal Mood - Problem List & Annotations (1) Cellulitis of right leg SNOMED Code(s): 422092687 Code(s): L03.115 - CELLULITIS OF RIGHT LOWER LIMB Status: Acute Priority : High Current Visit: No Onset Date: ~07/25/17 Annotation/Comment:: Appears to be improving (2) D-dimer, elevated SNOMED Code(s): 891854518 Code(s): R79.89 - OTHER SPECIFIED ABNORMAL FINDINGS OF BLOOD CHEMISTRY Status: Acute Current Visit: No (3) Left rib fracture SNOMED Code(s): 71726034 Code(s): S22.32XA - FRACTURE OF ONE RIB, LEFT SIDE, INIT FOR CLOS FX Status : Acute Current Visit: No (4) Hyperlipidemia SNOMED Code(s): 55374023 Code(s): E78.5 - HYPERLIPIDEMIA, UNSPECIFIED Status: Chronic Priority: Low Current Visit: No Annotation/Comment:: Stable per history from patient and (5) Hypertension SNOMED Code(s): 48135902 Code(s): I10 - ESSENTIAL (PRIMARY) HYPERTENSION Status: Chronic Priority : Low Current Visit: No Annotation/Comment:: Stable per history (6) Hypothyroid SNOMED Code(s): 84120895 Code(s): E03.9 - HYPOTHYROIDISM, UNSPECIFIED Status: Chronic Priority: Low Current Visit: No Qualifiers: Hypothyroidism type: unspecified Qualified Code(s): E03.9 - Hypothyroidism , unspecified - Problem List Review Problem List Initiated/Reviewed/Updated: Yes - My Orders Last 24 Hours: My Active Orders 07/28/17 14:40 Morphine 5 mg IVPUSH Q2H PRN 07/28/17 18:00 Famotidine [Pepcid] 20 mg IVPUSH BID Ketorolac [Toradol] 30 mg IVPUSH Q6HR 07/28/17 20:00 Sodium Chloride 0.9% [Saline Flush] 10 ml FLUSH Q12HR - Assessment Assessment:: Cellulitis right leg, appears to be improving on current regimen - Plan Plan:: Cellulitis right lower leg. Recent fall one week ago with subsequent lower right leg abrasions as well as left rib fractures and left sided contusions. Initial workup in ER. No DVT per [facility] ultrasound study in [place]. Will continue Clindamycin IV as well as focus on pain management. Anticipate additional 2 day stay for antibiotic therapy, improvement of infection and pain , and transitioning to oral medication prior to discharge home. 07/28/17 Marcus Richardson MD Leg feeling a little bit better but still quite painful. Swelling RLE is decreasing but persists. Continue IV antibiotics. Some loose stools.
[2017-07-28] MEDS ORDERED: Loperamide 2 MG Tab PO PRN (15:00)
[2017-07-28] MEDS ORDERED: Morphine 10 MG/ML Syringe IVPUSH PRN (15:00)
[2017-07-28] MEDS: Ketorolac 30 MG/ML SDV IVPUSH SCH ×2 (17:27→21:35)
[2017-07-28] MEDS: Famotidine 20 MG/2 ML SDV IVPUSH SCH (17:29)
[2017-07-28] MEDS: Sodium Chloride 0.9% 10 ML Syringe FLUSH SCH (20:19)
[2017-07-28] MEDS: Fenofibrate,Micronized 134 MG Cap PO SCH (20:19)
[2017-07-29] MEDS: oxyCODONE 5 MG Tab PO PRN (02:11)
[2017-07-29] MEDS: Ketorolac 30 MG/ML SDV IVPUSH SCH ×3 (05:22→20:45)
[2017-07-29] MEDS: Clindamycin Phosphate 600 MG in Sodium Chloride 0.9% 100 ML IV SCH ×3 (05:23→21:00)
[2017-07-29] MEDS: Sodium Chloride 0.9% 10 ML Syringe FLUSH PRN ×4 (05:24→20:39)
[2017-07-29] MEDS: Famotidine 20 MG/2 ML SDV IVPUSH SCH ×2 (08:24→17:39)
[2017-07-29] MEDS: Levothyroxine 25 MCG Tab PO SCH (08:24)
[2017-07-29] MEDS: Sodium Chloride 0.9% 10 ML Syringe FLUSH SCH ×2 (08:25→20:01)
--- NOTE | 2017-07-29 17:26 | PCM.PN ---
- General Info Date of Service: 07/29/17 Admission Dx/Problem (Free Text): Cellulitis right leg Subjective Update: Pain still present but improves with pain medication. No worsening overall. Feels more rested today. No fevers/chills. Leg is sometimes itchy today. Functional Status: Reports: Other (severe pain left leg over hip and pain right lower leg jarquin area, abrasions, decreasing red) - Review of Systems General: Reports: No Symptoms HEENT: Reports: No Symptoms Pulmonary: Reports: Other (pain over left ribs) Cardiovascular: Reports: No Symptoms Gastrointestinal: Reports: No Symptoms Genitourinary: Reports: No Symptoms Musculoskeletal: Reports: Leg Pain (left upper leg over the hip and right lower leg over jarquin ) Skin: Reports: Other (abrasions, redness right jarquin) Neurological: Reports: No Symptoms Psychiatric: Reports: No Symptoms - Patient Data Vitals - Most Recent: Last Vital Signs Temp 97.4 F 07/29/17 16:00 Pulse 56 L 07/29/17 16:00 Resp 18 07/29/17 16:00 BP 127/77 07/29/17 16:00 Pulse Ox 94 L 07/29/17 16:00 Weight - Most Recent: 226 lb 0.004 oz I&O - Last 24 Hours: Intake & Output 07/29/17 07/29/17 07/29/17 06:59 14:59 22:59 Intake Total 100 2660 100 Output Total 1150 Balance 100 1510 100 Lab Results Last 24 Hours: Laboratory Results - last 24 hr 07/29/17 07/29/17 Range/Units 06:50 06:50 WBC 6.6 (4.0-10.2) K/uL RBC 4.38 (4.33-5.41) M/uL Hgb 13.8 (13.1-16.8) g/dL Hct 39.4 (39.0-49.0) % MCV 90.0 (84.0-98.0) fL MCH 31.5 (28.2-33.3) pg MCHC 35.0 (31.7-36.0) g/dL RDW 12.1 (11.2-14.1) % Plt Count 201 (150-350) K/uL Neut % (Auto) 58.6 (45.0-80.0) % Lymph % (Auto) 25.0 (10.0-50.0) % [place] % (Auto) 8.7 (2.0-14.0) % Eos % (Auto) 6.9 H (0.0-5.0) % Baso % (Auto) 0.8 (0.0-2.0) % Neut # (Auto) 3.85 (1.40-7.00) K/uL Lymph # (Auto) 1.64 (0.50-3.50) K/uL [place] # (Auto) 0.57 (0.00-1.00) K/uL Eos # (Auto) 0.45 (0.00-0.50) K/uL Baso # (Auto) 0.05 (0.00-0.20) K/uL Sodium 140 (136-145) mmol/L Potassium 4.2 (3.5-5.1) mmol/L Chloride 105 (98-107) mmol/L Carbon Dioxide 26.8 (21.0-32.0) mmol/L BUN 32 H (7-18) mg/dL Creatinine 1.37 H (0.51-1.17) mg/dL Est Cr Clr Drug Dosing 63.81 mL/min Estimated GFR (MDRD) 53 mL/min Glucose 95 (74-106) mg/dL Calcium 8.8 (8.5-10.1) mg/dL Med Orders - Current: Current Medications Acetaminophen (Tylenol) 650 mg PO Q4H PRN PRN Reason: Pain (Mild 1-3)/fever Last Admin: 07/29/17 02:12 Dose: 650 mg Bisacodyl (Dulcolax) 5 mg PO DAILY PRN PRN Reason: Constipation Coenzyme Q10 (Coenzyme Q10) 200 mg PO DAILY [facility] Last Admin: 07/29/17 08:23 Dose: 200 mg Famotidine (Pepcid) 20 mg IVPUSH BID [facility] Last Admin: 07/29/17 08:24 Dose: 20 mg Fenofibrate (Fenofibrate) 134 mg PO BEDTIME [facility] Last Admin: 07/28/17 20:19 Dose: 134 mg Clindamycin Phosphate 600 mg/ (Sodium Chloride) 104 mls @ 200 mls/hr IV Q8H [facility] Last Admin: 07/29/17 14:14 Dose: 200 mls/hr Levothyroxine Sodium (Levothyroxine) 25 mcg PO DAILY [facility] Last Admin: 07/29/17 08:24 Dose: 25 mcg Loperamide HCl (Imodium Ad) 4 mg PO Q6H PRN PRN Reason: Diarrhea Melatonin (Melatonin) 3 mg PO BEDTIME [facility] Morphine Sulfate (Morphine) 5 mg IVPUSH Q2H PRN PRN Reason: Pain (severe 7-10) Nebivolol (Bystolic) 5 mg PO DAILY [facility] Last Admin: 07/29/17 08:22 Dose: 5 mg Ondansetron HCl (Zofran) 4 mg IVPUSH Q6H PRN PRN Reason: Nausea/Vomiting Oxycodone HCl (Oxycodone) 5 mg PO Q4H PRN PRN Reason: Pain (moderate 4-6) Last Admin: 07/29/17 02:11 Dose: 5 mg Sodium Chloride (Saline Flush) 10 ml FLUSH ASDIRECTED PRN PRN Reason: Keep Vein Open Last Admin: 07/29/17 11:06 Dose: 10 ml Sodium Chloride (Saline Flush) 10 ml FLUSH Q12HR [facility] Last Admin: 07/29/17 08:25 Dose: 10 ml Discontinued Medications Enoxaparin Sodium (Lovenox) 40 mg SUBCUT DAILY [facility] Last Admin: 07/28/17 07:34 Dose: 40 mg Ketorolac Tromethamine (Toradol) 30 mg IVPUSH Q6H PRN PRN Reason: Pain (moderate 4-6) Last Admin: 07/28/17 12:31 Dose: 30 mg Ketorolac Tromethamine (Toradol) 30 mg IVPUSH Q6HR [facility] Stop: 08/02/17 18:01 Last Admin: 07/29/17 11:04 Dose: 30 mg Morphine Sulfate (Morphine) 5 mg IVPUSH ONETIME ONE Stop: 07/26/17 21:36 Last Admin: 07/26/17 22:18 Dose: 5 mg Morphine Sulfate (Morphine) 5 mg IVPUSH ONETIME ONE Stop: 07/27/17 03:01 Last Admin: 07/27/17 02:43 Dose: 5 mg Simvastatin (Zocor) 10 mg PO BEDTIME [facility] - Exam General: Alert, Cooperative, Mild Distress HEENT: Mucous Membr. Moist/[place] Neck: Trachea Midline, No JVD Lungs: Clear to Auscultation, Normal Respiratory Effort, Other (pain over left ribs) Cardiovascular: Regular Rate, Regular Rhythm GI/Abdominal Exam: Soft, Non-Tender, No Distention (Male) Exam: Deferred Back Exam: Normal Inspection Extremities: Arm Pain (left shoulder), Leg Pain, Increased Warmth (RLE), Redness (RLE) Skin: Ecchymosis (over left hip), Other (abrasions right jarquin) Wound/Incisions: No Drainage Neurological: No New Focal Deficit Psy/Mental Status: Alert, Normal Affect, Normal Mood, Anxious - Problem List & Annotations (1) Cellulitis of right leg SNOMED Code(s): 759304663 Code(s): L03.115 - CELLULITIS OF RIGHT LOWER LIMB Status: Acute Priority : High Current Visit: No Onset Date: ~07/25/17 Annotation/Comment:: Appears to be improving (2) D-dimer, elevated SNOMED Code(s): 400639657 Code(s): R79.89 - OTHER SPECIFIED ABNORMAL FINDINGS OF BLOOD CHEMISTRY Status: Acute Current Visit: No (3) Left rib fracture SNOMED Code(s): 42946552 Code(s): S22.32XA - FRACTURE OF ONE RIB, LEFT SIDE, INIT FOR CLOS FX Status : Acute Current Visit: No (4) Hyperlipidemia SNOMED Code(s): 07521308 Code(s): E78.5 - HYPERLIPIDEMIA, UNSPECIFIED Status: Chronic Priority: Low Current Visit: No Annotation/Comment:: Stable per history from patient and (5) Hypertension SNOMED Code(s): 19426056 Code(s): I10 - ESSENTIAL (PRIMARY) HYPERTENSION Status: Chronic Priority : Low Current Visit: No Annotation/Comment:: Stable per history (6) Hypothyroid SNOMED Code(s): 39643497 Code(s): E03.9 - HYPOTHYROIDISM, UNSPECIFIED Status: Chronic Priority: Low Current Visit: No Qualifiers: Hypothyroidism type: unspecified Qualified Code(s): E03.9 - Hypothyroidism , unspecified - Problem List Review Problem List Initiated/Reviewed/Updated: Yes - My Orders Last 24 Hours: My Active Orders 07/28/17 18:00 Famotidine [Pepcid] 20 mg IVPUSH BID 07/28/17 20:00 Sodium Chloride 0.9% [Saline Flush] 10 ml FLUSH Q12HR 07/29/17 20:00 Melatonin 3 mg PO BEDTIME - Assessment Assessment:: Cellulitis right leg, appears to be improving on current regimen - Plan Plan:: Cellulitis right lower leg. Recent fall one week ago with subsequent lower right leg abrasions as well as left rib fractures and left sided contusions. Initial workup in ER. No DVT per [facility] ultrasound study in [place]. Will continue Clindamycin IV as well as focus on pain management. Anticipate additional 2 day stay for antibiotic therapy, improvement of infection and pain , and transitioning to oral medication prior to discharge home. 07/28/17 Marcus Richardson MD Leg feeling a little bit better but still quite painful. Swelling RLE is decreasing but persists. Continue IV antibiotics. Some loose stools. 07/29/17 Still with significant pain. More swelling left upper leg over hip. Consistent with large hematoma. Not able to sleep. Worried about narcotic addiction. Reassurance given.
[2017-07-29] MEDS: fentaNYL 100 MCG/2 ML SDV IVPUSH PRN ×2 (18:24→20:39)
[2017-07-29] MEDS ORDERED: Melatonin 3 MG Tab PO SCH (20:00)
[2017-07-29] MEDS: Fenofibrate,Micronized 134 MG Cap PO SCH (20:01)
[2017-07-29] MEDS: Cyclobenzaprine 10 MG Tab PO PRN (20:01)
[2017-07-30] MEDS: fentaNYL 100 MCG/2 ML SDV IVPUSH PRN (01:09)
[2017-07-30] MEDS: Sodium Chloride 0.9% 10 ML Syringe FLUSH PRN ×4 (01:11→14:22)
[2017-07-30] MEDS: Cyclobenzaprine 10 MG Tab PO PRN ×2 (05:41→13:40)
[2017-07-30] MEDS: Clindamycin Phosphate 600 MG in Sodium Chloride 0.9% 100 ML IV SCH ×2 (05:41→13:42)
[2017-07-30] MEDS: Levothyroxine 25 MCG Tab PO SCH (07:37)
[2017-07-30] MEDS: Famotidine 20 MG/2 ML SDV IVPUSH SCH (07:39)
[2017-07-30] MEDS: Sodium Chloride 0.9% 10 ML Syringe FLUSH SCH (07:41)
[2017-07-30 07:43] LABS: CHLORIDE,CL 106 mmol/L (98-107); SODIUM,NA 142 mmol/L (136-145)
[2017-07-30] MEDS: oxyCODONE 5 MG Tab PO PRN (09:03)
--- NOTE | 2017-07-30 16:01 | PCM.PN ---
- General Info Date of Service: 07/30/17 Admission Dx/Problem (Free Text): Cellulitis right leg Subjective Update: Pain still present but improves with pain medication. No worsening overall. Feels more rested today. No fevers/chills. Leg is sometimes itchy today. Functional Status: Reports: Pain Controlled - Review of Systems General: Reports: No Symptoms HEENT: Reports: No Symptoms Pulmonary: Reports: No Symptoms Cardiovascular: Reports: No Symptoms Gastrointestinal: Reports: No Symptoms Genitourinary: Reports: No Symptoms Musculoskeletal: Reports: No Symptoms Skin: Reports: No Symptoms Neurological: Reports: No Symptoms Psychiatric: Reports: No Symptoms - Patient Data Vitals - Most Recent: Last Vital Signs Temp 97.5 F 07/30/17 11:20 Pulse 63 07/30/17 11:20 Resp 16 07/30/17 11:20 BP 112/67 07/30/17 11:20 Pulse Ox 94 L 07/30/17 11:20 Weight - Most Recent: 226 lb 0.004 oz I&O - Last 24 Hours: Intake & Output 07/30/17 07/30/17 07/30/17 06:59 14:59 22:59 Intake Total 100 1240 Output Total 800 1050 Balance -700 190 Lab Results Last 24 Hours: Laboratory Results - last 24 hr 07/30/17 07/30/17 07/30/17 Range/Units 06:55 06:55 06:55 WBC 6.9 (4.0-10.2) K/uL RBC 4.29 L (4.33-5.41) M/uL Hgb 13.5 (13.1-16.8) g/dL Hct 39.0 (39.0-49.0) % MCV 90.9 (84.0-98.0) fL MCH 31.5 (28.2-33.3) pg MCHC 34.6 (31.7-36.0) g/dL RDW 12.3 (11.2-14.1) % Plt Count 204 (150-350) K/uL Neut % (Auto) 57.3 (45.0-80.0) % Lymph % (Auto) 25.1 (10.0-50.0) % [place] % (Auto) 9.2 (2.0-14.0) % Eos % (Auto) 7.5 H (0.0-5.0) % Baso % (Auto) 0.9 (0.0-2.0) % Neut # (Auto) 3.98 (1.40-7.00) K/uL Lymph # (Auto) 1.74 (0.50-3.50) K/uL [place] # (Auto) 0.64 (0.00-1.00) K/uL Eos # (Auto) 0.52 H (0.00-0.50) K/uL Baso # (Auto) 0.06 (0.00-0.20) K/uL PT 10.8 (9.8-11.7) SEC INR 1.0 APTT 25.3 (22.1-29.8) SEC Sodium 142 (136-145) mmol/L Potassium 4.2 (3.5-5.1) mmol/L Chloride 106 (98-107) mmol/L Carbon Dioxide 27.9 (21.0-32.0) mmol/L BUN 27 H (7-18) mg/dL Creatinine 1.31 H (0.51-1.17) mg/dL Est Cr Clr Drug Dosing 66.73 mL/min Estimated GFR (MDRD) 56 mL/min Glucose 92 (74-106) mg/dL Calcium 8.8 (8.5-10.1) mg/dL Total Bilirubin 0.6 (0.2-1.0) mg/dL AST 25 (15-37) U/L ALT 40 (12-78) U/L Alkaline Phosphatase 61 (46-116) IU/L Creatine Kinase 39 (26-308) U/L C-Reactive Protein < 0.1 (<=0.9) mg/dL Total Protein 6.8 (6.4-8.2) g/dL Albumin 3.3 L (3.4-5.0) g/dL Med Orders - Current: Current Medications Acetaminophen (Tylenol) 650 mg PO Q4H PRN PRN Reason: Pain (Mild 1-3)/fever Last Admin: 07/29/17 02:12 Dose: 650 mg Bisacodyl (Dulcolax) 5 mg PO DAILY PRN PRN Reason: Constipation Coenzyme Q10 (Coenzyme Q10) 200 mg PO DAILY [facility] Last Admin: 07/30/17 07:38 Dose: 200 mg Cyclobenzaprine HCl (Flexeril) 10 mg PO TID PRN PRN Reason: Pain Last Admin: 07/30/17 13:40 Dose: 10 mg Famotidine (Pepcid) 20 mg IVPUSH BID [facility] Last Admin: 07/30/17 07:39 Dose: 20 mg Fenofibrate (Fenofibrate) 134 mg PO BEDTIME [facility] Last Admin: 07/29/17 20:01 Dose: 134 mg Fentanyl (Sublimaze) 100 mcg IVPUSH Q2H PRN PRN Reason: Pain (severe 7-10) Last Admin: 07/30/17 01:09 Dose: 100 mcg Clindamycin Phosphate 600 mg/ (Sodium Chloride) 104 mls @ 200 mls/hr IV Q8H [facility] Last Admin: 07/30/17 13:42 Dose: 200 mls/hr Levothyroxine Sodium (Levothyroxine) 25 mcg PO DAILY [facility] Last Admin: 07/30/17 07:37 Dose: 25 mcg Loperamide HCl (Imodium Ad) 4 mg PO Q6H PRN PRN Reason: Diarrhea Last Admin: 07/29/17 20:01 Dose: 4 mg Melatonin (Melatonin) 3 mg PO BEDTIME [facility] Last Admin: 07/29/17 20:01 Dose: 3 mg Nebivolol (Bystolic) 5 mg PO DAILY [facility] Last Admin: 07/30/17 07:38 Dose: 5 mg Ondansetron HCl (Zofran) 4 mg IVPUSH Q6H PRN PRN Reason: Nausea/Vomiting Oxycodone HCl (Oxycodone) 5 mg PO Q4H PRN PRN Reason: Pain (moderate 4-6) Last Admin: 07/30/17 09:03 Dose: 5 mg Sodium Chloride (Saline Flush) 10 ml FLUSH ASDIRECTED PRN PRN Reason: Keep Vein Open Last Admin: 07/30/17 14:22 Dose: 10 ml Sodium Chloride (Saline Flush) 10 ml FLUSH Q12HR [facility] Last Admin: 07/30/17 07:41 Dose: 10 ml Discontinued Medications Enoxaparin Sodium (Lovenox) 40 mg SUBCUT DAILY [facility] Last Admin: 07/28/17 07:34 Dose: 40 mg Ketorolac Tromethamine (Toradol) 30 mg IVPUSH Q6H PRN PRN Reason: Pain (moderate 4-6) Last Admin: 07/28/17 12:31 Dose: 30 mg Ketorolac Tromethamine (Toradol) 30 mg IVPUSH Q6HR [facility] Stop: 08/02/17 18:01 Last Admin: 07/29/17 20:45 Dose: Not Given Morphine Sulfate (Morphine) 5 mg IVPUSH ONETIME ONE Stop: 07/26/17 21:36 Last Admin: 07/26/17 22:18 Dose: 5 mg Morphine Sulfate (Morphine) 5 mg IVPUSH ONETIME ONE Stop: 07/27/17 03:01 Last Admin: 07/27/17 02:43 Dose: 5 mg Morphine Sulfate (Morphine) 5 mg IVPUSH Q2H PRN PRN Reason: Pain (severe 7-10) Simvastatin (Zocor) 10 mg PO BEDTIME [facility] - Exam General: Alert, Oriented, Cooperative, No Acute Distress HEENT: Pupils Equal, Pupils Reactive, EOMI, Mucous Membr. Moist/[place] Neck: Supple, Trachea Midline Lungs: Clear to Auscultation, Normal Respiratory Effort Cardiovascular: Regular Rate, Regular Rhythm GI/Abdominal Exam: Soft, Non-Tender, Pelvis Stable (Male) Exam: Deferred Back Exam: Normal Inspection Extremities: Normal Capillary Refill, Leg Pain (over left hip ecchymosis and soft tissue swelling, swelling right jarquin decrease in red) Skin: Warm, Dry, Intact, Ecchymosis Wound/Incisions: Healing Well Neurological: No New Focal Deficit Psy/Mental Status: Alert, Normal Affect, Normal Mood - Problem List & Annotations (1) Cellulitis of right leg SNOMED Code(s): 147190664 Code(s): L03.115 - CELLULITIS OF RIGHT LOWER LIMB Status: Acute Priority : High Current Visit: No Onset Date: ~07/25/17 Annotation/Comment:: Appears to be improving (2) D-dimer, elevated SNOMED Code(s): 945786814 Code(s): R79.89 - OTHER SPECIFIED ABNORMAL FINDINGS OF BLOOD CHEMISTRY Status: Acute Current Visit: No (3) Left rib fracture SNOMED Code(s): 56799166 Code(s): S22.32XA - FRACTURE OF ONE RIB, LEFT SIDE, INIT FOR CLOS FX Status : Acute Current Visit: No (4) Hyperlipidemia SNOMED Code(s): 92091537 Code(s): E78.5 - HYPERLIPIDEMIA, UNSPECIFIED Status: Chronic Priority: Low Current Visit: No Annotation/Comment:: Stable per history from patient and (5) Hypertension SNOMED Code(s): 98870969 Code(s): I10 - ESSENTIAL (PRIMARY) HYPERTENSION Status: Chronic Priority : Low Current Visit: No Annotation/Comment:: Stable per history (6) Hypothyroid SNOMED Code(s): 16593361 Code(s): E03.9 - HYPOTHYROIDISM, UNSPECIFIED Status: Chronic Priority: Low Current Visit: No Qualifiers: Hypothyroidism type: unspecified Qualified Code(s): E03.9 - Hypothyroidism , unspecified - Problem List Review Problem List Initiated/Reviewed/Updated: Yes - My Orders Last 24 Hours: My Active Orders 07/29/17 17:39 fentaNYL [Sublimaze] 100 mcg IVPUSH Q2H PRN 07/29/17 19:08 Cyclobenzaprine [Flexeril] 10 mg PO TID PRN 07/29/17 20:00 Melatonin 3 mg PO BEDTIME 07/30/17 05:11 Chest 2V [CR] Routine Extremity Non Vascular Lt [US] Routine Extremity Non Vascular Rt [US] Routine 07/30/17 15:58 Ready for Discharge [RC] PER UNIT ROUTINE Discontinue Saline Lock [Peripheral IV Discontinue] [OM.PC] Routine - Assessment Assessment:: Cellulitis right leg, appears to be improving on current regimen - Plan Plan:: Cellulitis right lower leg. Recent fall one week ago with subsequent lower right leg abrasions as well as left rib fractures and left sided contusions. Initial workup in ER. No DVT per [facility] ultrasound study in [place]. Will continue Clindamycin IV as well as focus on pain management. Anticipate additional 2 day stay for antibiotic therapy, improvement of infection and pain , and transitioning to oral medication prior to discharge home. 07/28/17 Marcus Richardson MD Leg feeling a little bit better but still quite painful. Swelling RLE is decreasing but persists. Continue IV antibiotics. Some loose stools. 07/29/17 Still with significant pain. More swelling left upper leg over hip. Consistent with large hematoma. Not able to sleep. Worried about narcotic addiction. Reassurance given. 07/30/17 Marcus Richardson MD Feels better. Pain decreased. Home today.
--- NOTE | 2017-07-30 16:02 | PCM.DCSUM1 ---
Discharge Summary - Discharge Data Discharge Date: 07/30/17 Discharge Disposition: Home, Self-Care 01 Condition: Good - Discharge Diagnosis/Problem(s) (1) Cellulitis of right leg SNOMED Code(s): 981262717 ICD Code: L03.115 - CELLULITIS OF RIGHT LOWER LIMB Status: Acute Priority : High Current Visit: No Onset Date: ~07/25/17 Problem Details: Appears to be improving (2) D-dimer, elevated SNOMED Code(s): 201128645 ICD Code: R79.89 - OTHER SPECIFIED ABNORMAL FINDINGS OF BLOOD CHEMISTRY Status: Acute Current Visit: No (3) Left rib fracture SNOMED Code(s): 43978750 ICD Code: S22.32XA - FRACTURE OF ONE RIB, LEFT SIDE, INIT FOR CLOS FX Status: Acute Current Visit: No (4) Hyperlipidemia SNOMED Code(s): 38604352 ICD Code: E78.5 - HYPERLIPIDEMIA, UNSPECIFIED Status: Chronic Priority: Low Current Visit: No Problem Details: Stable per history from patient and (5) Hypertension SNOMED Code(s): 09850485 ICD Code: I10 - ESSENTIAL (PRIMARY) HYPERTENSION Status: Chronic Priority : Low Current Visit: No Problem Details: Stable per history (6) Hypothyroid SNOMED Code(s): 21003198 ICD Code: E03.9 - HYPOTHYROIDISM, UNSPECIFIED Status: Chronic Priority: Low Current Visit: No Qualifiers: Hypothyroidism type: unspecified Qualified Code(s): E03.9 - Hypothyroidism , unspecified - Patient Summary/Data Consults: Consultations 07/26/17 21:25 OT Evaluation and Treatment [CONS] Routine PT Evaluation and Treatment [CONS] Routine - Patient Instructions Diet: Usual Diet as Tolerated Activity: As Tolerated, Rest and Relax Today Showering/Bathing: May Shower Other/Special Instructions: Appointment at [facility] with Kim on 08/07/17 at 9:00am. PT will call you with possible appointments to treat hematomas. No work at least til 08/11/17. - Discharge Plan Prescriptions/Med Rec: Clindamycin HCl [Cleocin] 150 mg PO Q8H #15 cap Cyclobenzaprine [Flexeril] 10 mg PO TID PRN #30 tablet PRN Reason: Pain Home Medications: Home Meds Levothyroxine 25 mcg PO DAILY 09/29/14 [History] Nebivolol [Bystolic] 5 mg PO DAILY 09/29/14 [History] Cider Vinegar [Apple Cider Vinegar] 1 tab PO BID 10/17/16 [History] Krill/[place]-3/Dha/Epa/Lipids [Krill Oil 300 mg Softgel] 1 cap PO DAILY 10/17/16 [History] Melatonin 10 mg PO BEDTIME 10/17/16 [History] Multivitamin [Daily Multiple Vitamin] 1 tab PO DAILY 10/17/16 [History] Ubidecarenone [Co Q-10] 200 mg PO DAILY 10/17/16 [History] Acetaminophen/HYDROcodone [[place] 325-5 MG] 1 tab PO Q4H PRN 07/26/17 [History] Cholestyramine/Sucrose [Cholestyramine] 4 gm PO BID 07/26/17 [History] Fenofibrate,Micronized [Fenofibrate] 134 mg PO BEDTIME 07/26/17 [History] Non-Formulary Medication [NF Drug] 1 tab PO DAILY 07/26/17 [History] Clindamycin HCl [Cleocin] 150 mg PO Q8H #15 cap 07/30/17 [Rx] Cyclobenzaprine [Flexeril] 10 mg PO TID PRN #30 tablet 07/30/17 [Rx] - Discharge Summary/Plan Comment DC Time >30 min.: No - Patient Data Vitals - Most Recent: Last Vital Signs Temp 97.5 F 07/30/17 11:20 Pulse 63 07/30/17 11:20 Resp 16 07/30/17 11:20 BP 112/67 07/30/17 11:20 Pulse Ox 94 L 07/30/17 11:20 Weight - Most Recent: 226 lb 0.004 oz I&O - Last 24 hours: Intake & Output 07/30/17 07/30/17 07/30/17 06:59 14:59 22:59 Intake Total 100 1240 Output Total 800 1050 Balance -700 190 Lab Results - Last 24 hrs: Laboratory Results - last 24 hr 07/30/17 07/30/17 07/30/17 Range/Units 06:55 06:55 06:55 WBC 6.9 (4.0-10.2) K/uL RBC 4.29 L (4.33-5.41) M/uL Hgb 13.5 (13.1-16.8) g/dL Hct 39.0 (39.0-49.0) % MCV 90.9 (84.0-98.0) fL MCH 31.5 (28.2-33.3) pg MCHC 34.6 (31.7-36.0) g/dL RDW 12.3 (11.2-14.1) % Plt Count 204 (150-350) K/uL Neut % (Auto) 57.3 (45.0-80.0) % Lymph % (Auto) 25.1 (10.0-50.0) % [place] % (Auto) 9.2 (2.0-14.0) % Eos % (Auto) 7.5 H (0.0-5.0) % Baso % (Auto) 0.9 (0.0-2.0) % Neut # (Auto) 3.98 (1.40-7.00) K/uL Lymph # (Auto) 1.74 (0.50-3.50) K/uL [place] # (Auto) 0.64 (0.00-1.00) K/uL Eos # (Auto) 0.52 H (0.00-0.50) K/uL Baso # (Auto) 0.06 (0.00-0.20) K/uL PT 10.8 (9.8-11.7) SEC INR 1.0 APTT 25.3 (22.1-29.8) SEC Sodium 142 (136-145) mmol/L Potassium 4.2 (3.5-5.1) mmol/L Chloride 106 (98-107) mmol/L Carbon Dioxide 27.9 (21.0-32.0) mmol/L BUN 27 H (7-18) mg/dL Creatinine 1.31 H (0.51-1.17) mg/dL Est Cr Clr Drug Dosing 66.73 mL/min Estimated GFR (MDRD) 56 mL/min Glucose 92 (74-106) mg/dL Calcium 8.8 (8.5-10.1) mg/dL Total Bilirubin 0.6 (0.2-1.0) mg/dL AST 25 (15-37) U/L ALT 40 (12-78) U/L Alkaline Phosphatase 61 (46-116) IU/L Creatine Kinase 39 (26-308) U/L C-Reactive Protein < 0.1 (<=0.9) mg/dL Total Protein 6.8 (6.4-8.2) g/dL Albumin 3.3 L (3.4-5.0) g/dL Med Orders - Current: Current Medications Acetaminophen (Tylenol) 650 mg PO Q4H PRN PRN Reason: Pain (Mild 1-3)/fever Last Admin: 07/29/17 02:12 Dose: 650 mg Bisacodyl (Dulcolax) 5 mg PO DAILY PRN PRN Reason: Constipation Coenzyme Q10 (Coenzyme Q10) 200 mg PO DAILY [facility] Last Admin: 07/30/17 07:38 Dose: 200 mg Cyclobenzaprine HCl (Flexeril) 10 mg PO TID PRN PRN Reason: Pain Last Admin: 07/30/17 13:40 Dose: 10 mg Famotidine (Pepcid) 20 mg IVPUSH BID [facility] Last Admin: 07/30/17 07:39 Dose: 20 mg Fenofibrate (Fenofibrate) 134 mg PO BEDTIME [facility] Last Admin: 07/29/17 20:01 Dose: 134 mg Fentanyl (Sublimaze) 100 mcg IVPUSH Q2H PRN PRN Reason: Pain (severe 7-10) Last Admin: 07/30/17 01:09 Dose: 100 mcg Clindamycin Phosphate 600 mg/ (Sodium Chloride) 104 mls @ 200 mls/hr IV Q8H [facility] Last Admin: 07/30/17 13:42 Dose: 200 mls/hr Levothyroxine Sodium (Levothyroxine) 25 mcg PO DAILY [facility] Last Admin: 07/30/17 07:37 Dose: 25 mcg Loperamide HCl (Imodium Ad) 4 mg PO Q6H PRN PRN Reason: Diarrhea Last Admin: 07/29/17 20:01 Dose: 4 mg Melatonin (Melatonin) 3 mg PO BEDTIME [facility] Last Admin: 07/29/17 20:01 Dose: 3 mg Nebivolol (Bystolic) 5 mg PO DAILY [facility] Last Admin: 07/30/17 07:38 Dose: 5 mg Ondansetron HCl (Zofran) 4 mg IVPUSH Q6H PRN PRN Reason: Nausea/Vomiting Oxycodone HCl (Oxycodone) 5 mg PO Q4H PRN PRN Reason: Pain (moderate 4-6) Last Admin: 07/30/17 09:03 Dose: 5 mg Sodium Chloride (Saline Flush) 10 ml FLUSH ASDIRECTED PRN PRN Reason: Keep Vein Open Last Admin: 07/30/17 14:22 Dose: 10 ml Sodium Chloride (Saline Flush) 10 ml FLUSH Q12HR [facility] Last Admin: 07/30/17 07:41 Dose: 10 ml Discontinued Medications Enoxaparin Sodium (Lovenox) 40 mg SUBCUT DAILY [facility] Last Admin: 07/28/17 07:34 Dose: 40 mg Ketorolac Tromethamine (Toradol) 30 mg IVPUSH Q6H PRN PRN Reason: Pain (moderate 4-6) Last Admin: 07/28/17 12:31 Dose: 30 mg Ketorolac Tromethamine (Toradol) 30 mg IVPUSH Q6HR [facility] Stop: 08/02/17 18:01 Last Admin: 07/29/17 20:45 Dose: Not Given Morphine Sulfate (Morphine) 5 mg IVPUSH ONETIME ONE Stop: 07/26/17 21:36 Last Admin: 07/26/17 22:18 Dose: 5 mg Morphine Sulfate (Morphine) 5 mg IVPUSH ONETIME ONE Stop: 07/27/17 03:01 Last Admin: 07/27/17 02:43 Dose: 5 mg Morphine Sulfate (Morphine) 5 mg IVPUSH Q2H PRN PRN Reason: Pain (severe 7-10) Simvastatin (Zocor) 10 mg PO BEDTIME [facility] *Q Meaningful Use (DIS) - VTE *Q VTE Criteria *Q: - Stroke *Q Stroke Criteria *Q: - AMI *Q AMI Criteria *Q:
[2017-07-30 16:15] VITALS: BP 136/87
== END 2017-07-30 16:35 | disposition home or self-care (01) | DRG 383 ==
LOC: LL.MS 20:48
PROVIDERS: ADMIT Emergency Medicine; ATTEND Family Medicine
DX: L03.115 Cellulitis of right lower limb (principal); R79.89 Other specified abnormal findings of blood chemistry; E78.5 Hyperlipidemia, unspecified; I10 Essential (primary) hypertension; E03.9 Hypothyroidism, unspecified; H54.7 Unspecified visual loss; G47.30 Sleep apnea, unspecified; G89.29 Other chronic pain; M54.2 Cervicalgia; S22.32XD Fracture of one rib, left side, subsequent encounter for fracture with routine healing; W19.XXXD Unspecified fall, subsequent encounter; Z88.0 Allergy status to penicillin; Z88.1 Allergy status to other antibiotic agents; Z91.040 Latex allergy status; Z79.899 Other long term (current) drug therapy; R79.1 Abnormal coagulation profile; E78.00 Pure hypercholesterolemia, unspecified
CPT/HCPCS: 36415; 71046; 76881-LT; 76881-RT; 80048; 80053; 82550; 85025; 85379; 85610; 85730; 86140; 94762; 96365; 96375; 97161-GP; 99284; A9270-GY; J1200; J1650; J1885; J2270; J2405; J3010; J7050; S0028; S0077

== ENCOUNTER 2021-10-11 09:56 | Day surgery (SDC) | payer BC ==
[~2021-10-11 09:56] MED LIST changes: +Midazolam 1 MG/ML 2 ML SDV ONE
[2021-10-11] MEDS ORDERED: Midazolam 1 MG/ML 2 ML SDV ONE (12:09)
[2021-10-11] MEDS ORDERED: Propofol 200 MG/20 ML SDV ONE (12:09)
[2021-10-11 15:33] VITALS: BP 112/77; PULSE 77
== END 2021-10-11 13:45 | disposition home or self-care (01) ==
LOC: LL.SDS 09:56
PROVIDERS: ATTEND Surgery
DX: Z12.11 Encounter for screening for malignant neoplasm of colon (principal); K57.30 Diverticulosis of large intestine without perforation or abscess without bleeding; I10 Essential (primary) hypertension; E78.2 Mixed hyperlipidemia; E11.9 Type 2 diabetes mellitus without complications; E03.9 Hypothyroidism, unspecified; Z79.84 Long term (current) use of oral hypoglycemic drugs; Z80.0 Family history of malignant neoplasm of digestive organs
CPT/HCPCS: J2250; J2704; J7120

== ENCOUNTER 2024-10-23 04:36 | Emergency (ER) | payer BC, MEDICARE ==
[2024-10-23 04:43] VITALS: BP 107/79; PULSE 98
[2024-10-23 08:54] LABS: APPEARANCE,URINE CLEAR (CLEAR); BILIRUBIN,URINE NEGATIVE (NEGATIVE); COLOR,URINE YELLOW (YELLOW); GLUCOSE,URINE NEGATIVE (NEGATIVE); KETONES,URINE NEGATIVE (NEGATIVE); OCCULT BLOOD,URINE TRACE-INTACT (NEGATIVE); PH,URINE 5.5 (5.0-9.0); PROTEIN,URINE NEGATIVE (NEGATIVE)
[2024-10-23 08:55] LABS: BACTERIA,URINE NOT SEEN /HPF (NONE TO FEW); LEUKOCYTE ESTERASE,URINE NEGATIVE (NEGATIVE); NITRITE,URINE NEGATIVE (NEGATIVE); RBC,URINE 0-5 /HPF; WBC,URINE 0-5 /HPF
== END 2024-10-23 05:48 | disposition home or self-care (01) ==
LOC: LL.ED 04:36
DX: R33.9 Retention of urine, unspecified (principal); I10 Essential (primary) hypertension; E11.9 Type 2 diabetes mellitus without complications; E03.9 Hypothyroidism, unspecified; Z88.0 Allergy status to penicillin; Z88.8 Allergy status to other drugs, medicaments and biological substances; Z91.040 Latex allergy status; Z91.048 Other nonmedicinal substance allergy status; Z79.84 Long term (current) use of oral hypoglycemic drugs; Z79.890 Hormone replacement therapy; Z79.899 Other long term (current) drug therapy
CPT/HCPCS: 51702; 81001; 99283